=== PATIENT | male | born 1955 | race Caucasian/White ===

== ENCOUNTER → 2018-10-05 | Outpatient (CLI) | payer BC ==
--- NOTE | 2018-10-05 10:59 | Diagnostic Imaging Report ---
INDICATION: Left knee pain. FINDINGS: Three views of the left knee show no fracture, dislocation or other acute abnormalities. IMPRESSION: Negative left knee. Dictated by: Dictated on workstation # [id number]
--- NOTE | 2018-10-05 12:01 | Diagnostic Imaging Report ---
Bilateral shoulders INDICATION: Shoulder pain 3 views of both shoulder joints were obtained. There are no prior studies available for comparison. There is no fracture, dislocation or acute bony abnormality evident. There is mild degenerative disease of the glenohumeral joint and moderate degenerative disease of the acromioclavicular joints. The soft tissues are unremarkable. IMPRESSION: 1. There is no evidence for an acute bony abnormality of either shoulder joint. 2. If there is clinical concern regarding an injury to the rotator cuff or labrum, then MRI would be recommended for further evaluation. Dictated by: Dictated on workstation # [id number]
== END ==
LOC: RAD FS 10:40
PROVIDERS: ATTEND Family Medicine
DX: M25.511 Pain in right shoulder (principal); M25.512 Pain in left shoulder; M25.562 Pain in left knee
CPT/HCPCS: 73562

== ENCOUNTER → 2019-01-10 | Outpatient (CLI) | payer BC ==
--- NOTE | 2019-01-10 13:30 | Diagnostic Imaging Report ---
PROCEDURE: MRI right joint upper extremity without contrast. TECHNIQUE: Multiplanar, multisequence non contrast-enhanced MRI of the right upper extremity was accomplished. INDICATION: Right shoulder pain for 6 months. No known injury. COMPARISON: Radiographs from 10/05/2018 FINDINGS: No acute fracture or dislocation is seen in the right shoulder. There is superior migration of the humeral head, which contacts the undersurface of the acromion. There is remodeling and subcortical cystlike changes in the acromion due to the pseudoarticulation. There are moderate degenerative changes in the acromioclavicular joint. There is a small right shoulder joint effusion. There is fluid in the subacromial subdeltoid bursa. There is a complete tear of the supraspinatus tendon with retraction medially to the level of the glenohumeral joint. There is a full-thickness tear of the infraspinatus tendon. The rotator cuff tear is approximately 3.5 cm in width. There is mild atrophy and edema within the respective musculature. The subscapularis tendon demonstrates tendinosis with no high-grade partial-thickness or full-thickness tear. The teres minor tendon appears intact. The long head of the biceps tendon appears normal in course and signal. The glenoid labrum is suboptimally evaluated in the absence of intra-articular contrast. No para-labral cysts are seen. The acromion has a curved undersurface. The coracoclavicular and coracoacromial ligaments are intact. The soft tissues about the right shoulder are otherwise unremarkable. IMPRESSION: 1. Large full-thickness tear of the right rotator cuff involving the supraspinatus and infraspinatus tendons. There is mild atrophy and edema of the associated musculature. 2. 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 Moderate degenerative changes of the acromioclavicular joint. 3. Small right shoulder joint effusion. Dictated by: Dictated on workstation # [id number]
== END ==
LOC: RAD 12:05
PROVIDERS: ATTEND Nurse Practitioner
DX: M75.101 Unspecified rotator cuff tear or rupture of right shoulder, not specified as traumatic (principal); M19.011 Primary osteoarthritis, right shoulder
CPT/HCPCS: 73221

== ENCOUNTER 2019-09-08 06:44 | Emergency (ER) | payer BC ==
[~2019-09-08] VITALS: Ht 172 cm; Wt 82.0 kg
[2019-09-08] MEDS ORDERED: MECL-149 PO (07:14)
--- NOTE | 2019-09-08 07:14 | ED General ---
General Chief Complaint: Dizziness/Syncope Stated Complaint: DIZZY AND VOMITING Source of Information: Patient Exam Limitations: No Limitations History of Present Illness Date Seen by Provider: September 08, 2019 Time Seen by Provider: 06:57 Initial Comments Patient awoke this morning with onset of dizziness when moving his head. Worse when standing or changing positions. Not lightheaded, feeling as if he is off balance and spinning. Associated nausea with vomiting 1. Denies a history of vertigo. Denies any numbness, weakness, difficulty with speech. Denies recent illness, sinus congestion, ear pain, seasonal allergies or recent fever. Allergies and Home Medications Allergies Coded Allergies: No Known Allergies (Verified Allergy, Unknown, 09/08/19) Home Medications Meclizine HCl 25 Mg Tablet, 25 MG PO Q8H Prescribed by: KATE BUI on 09/08/19 0714 Patient Home Medication List Home Medication List Reviewed: Yes Review of Systems Review of Systems Constitutional: see HPI; No chills, No diaphoresis; dizziness; No fever; malaise; No weakness EENTM: no symptoms reported Respiratory: No cough, No short of breath Cardiovascular: No chest pain, No edema, No palpitations, No syncope Gastrointestinal: No abdominal pain, No loss of appetite; nausea, vomiting Musculoskeletal: No back pain, No neck pain Psychiatric/Neurological: See HPI; Denies Headache, Denies Numbness, Denies Paresthesia, Denies Seizure, Denies Tingling, Denies Tremors, Denies Weakness Past Lkjooll-Efkpdz-Xkhlpc Hx Past Med/Social Hx: Reviewed Nursing Past Med/Soc Hx Patient Social History Recent Foreign Travel: No Contact w/Someone Who Travel: No Physical Exam Vital Signs Vital Signs - First Documented 09/08/19 07:05 Temp 36.7 Pulse 58 Resp 18 B/P (MAP) 140/78 (98) Pulse Ox 98 O2 Delivery Room Air Capillary Refill : Height, Weight, BMI Height: '" Weight: lbs. oz. kg; BMI Method: General Appearance: No Apparent Distress, WD/WN Eyes: Bilateral Eye Normal Inspection, Bilateral Eye PERRL, Bilateral Eye EOMI HEENT: PERRL/EOMI, Normal ENT Inspection Neck: Full Range of Motion, Normal Inspection, Non Tender, Supple Respiratory: Chest Non Tender, Lungs Clear Cardiovascular: Regular Rate, Rhythm, No Edema Gastrointestinal: Normal Bowel Sounds, Soft; No Distended, No Guarding Extremity: Normal Capillary Refill, Normal Inspection Neurologic/Psychiatric: Alert, Oriented x3, No Motor/Sensory Deficits, Normal Mood/Affect, datastage developer II-XII Norm as Tested; No Abnormal Cerebellar Tests, No Abnormal Gait, No Aphasia, No Facial Droop, No Motor Weakness, No Sensory Deficit Skin: Normal Color, Warm/Dry Progress/Results/Core Measures Suspected Sepsis SIRS Temperature: Pulse: Respiratory Rate: Blood Pressure / Mean: Results/Orders My Orders Orders - KATE BUI DO Meclizine Tablet (Antivert Tablet) (09/08/19 07:15) Medications Given in ED Current Medications Medications Dose Ordered Sig/Brittany Route Start Time Stop Time Status Last Admin Dose Admin Meclizine HCl 25 mg ONCE ONCE PO 09/08/19 07:15 09/08/19 07:16 DC 09/08/19 07:12 25 MG Vital Signs/I&O 09/08/19 07:05 Temp 36.7 Pulse 58 Resp 18 B/P (MAP) 140/78 (98) Pulse Ox 98 O2 Delivery Room Air Capillary Refill : Progress Note : Progress Note feeling better after meclizine. Able to stand without significant vertigo sx. No nausea. Discussed prn meclizine and f/u w pCP if not improving, ER sooner if worse and unable to see PCP Departure Impression Primary Impression: Vertigo Disposition: 01 HOME, SELF-CARE Condition: Improved Departure-Patient Inst. Referrals: SELFJAVIER MD (PCP/Family) Primary Care Physician Patient Instructions: Vertigo (a Type of Dizziness) (DC) Scripts Meclizine HCl (Meclizine HCl) 25 Mg Tablet 25 MG PO Q8H for Dizziness, #20 TAB Prov: KATE BUI DO 09/08/19 KATE BUI DO September 08, 2019 07:14
[2019-09-08] MEDS ORDERED: MECLIZINE 25 MG (ANTIVERT) TAB PO ONE (07:15)
[2019-09-08 07:53] VITALS: BP 136/55
--- OUTSIDE RECORDS SUMMARY | 2019-09-08 08:11 | XMS REPORT | Continuity of Care Document ---
Demographics x Preferred Language Unknown Marital Status Unknown Congregation Affiliation Unknown Race Unknown Ethnic Group Unknown Author Organization Unknown Address Unknown Phone Unavailable Allergies There is no data. Medications There is no data. Problems Date Dx Coded Attending Type Code Diagnosis Diagnosed By 10/09/2018 SELF JAVIER SORENSON Ot M25.51 1 PAIN IN RIGHT SHOULDER 10/09/2018 SELF JAVIER SORENSON Ot M25.51 2 PAIN IN LEFT SHOULDER 10/09/2018 SELF JAVIER SORENSON Ot M25.56 2 PAIN IN LEFT KNEE 10/21/2018 SELF JAVIER SORENSON Ot M25.51 1 PAIN IN RIGHT SHOULDER 10/21/2018 SELF JAVIER SORENSON Ot M25.51 2 PAIN IN LEFT SHOULDER 10/21/2018 SELF JAVIER SORENSON Ot M25.56 2 PAIN IN LEFT KNEE 11/04/2018 SELF JAVIER SORENSON Ot M25.51 1 PAIN IN RIGHT SHOULDER 11/04/2018 SELF JAVIER SORENSON Ot M25.51 2 PAIN IN LEFT SHOULDER 11/04/2018 SELF JAVIER SORENSON Ot M25.56 2 PAIN IN LEFT KNEE 01/26/2019 JA PRINCE Ot M19.011 PRIMARY OSTEOARTHRITIS, RIGHT SHOULDER 01/26/2019 JA PRINCE Ot M75.101 UNSP ROTATR-CUFF TEAR/RUPTR OF RIGHT JANEY Procedures There is no data. Results There is no data. Encounters ACCT No. Visit Date/Time Discharge Status Pt. Type Provider Facility Loc./Unit Complaint [id number] 10/05/2018 10:15:00 10/05/2018 23:59: 59 CLS Outpatient [facility] [id number] 01/10/2019 12:05:00 019 23:59:59 CLS Outpatient JA PRINCE [facility] RAD ROTATOR CUFF TEAR, RIGGera T [id number] 10/05/2018 10:40:00 019 23:59:59 CLS Outpatient SELF JAVIER SORENSON [facility] RAD FS M25.511 M25.562
== END 2019-09-08 07:45 | disposition home or self-care (01) ==
LOC: EDUNIT# 06:44 → ER FS 06:46
DX: R42 Dizziness and giddiness (principal)
CPT/HCPCS: 99283

== ENCOUNTER → 2020-10-23 | Outpatient (CLI) | payer BC ==
[~2020-10-23] MED LIST: MECL-149 PO
== END ==
LOC: CARD 15:00
PROVIDERS: ATTEND Family Medicine
DX: I08.0 Rheumatic disorders of both mitral and aortic valves (principal)
CPT/HCPCS: 93306

== ENCOUNTER → 2021-02-17 | Outpatient (CLI) | payer BC | LOC: LAB FS 10:00 | PROVIDERS: ATTEND Thoracic Surgery (Cardiothoracic Vascular Surgery) | DX: Z01.812 Encounter for preprocedural laboratory examination (principal); Z20.822 Contact with and (suspected) exposure to COVID-19 | CPT/HCPCS: 87635 ==

== ENCOUNTER 2021-11-26 06:16 | Outpatient (CLI) | payer BC ==
[~2021-11-26] VITALS: Ht 172.7 cm; Wt 83.9 kg
[2021-11-26] MEDS ORDERED: MELO10CA3 PO (10:28)
== END 2021-11-26 10:32 | disposition home or self-care (01) ==
LOC: PREOP 06:16
PROVIDERS: ATTEND Surgery
DX: Z01.818 Encounter for other preprocedural examination (principal)

== ENCOUNTER 2021-12-08 08:37 | Day surgery (SDC) | payer BC ==
[~2021-12-08] VITALS: Ht 172.7 cm; Wt 83.9 kg
[~2021-12-08 08:37] MED LIST changes: +MELO10CA3 PO
[2021-12-08] MEDS ORDERED: LACTATED RINGERS 1,000 ML IV STA (08:46)
[2021-12-08 08:55] VITALS: BP 137/83
[2021-12-08] MEDS ORDERED: LACTATED RINGERS 1,000 ML IV ONE (08:55)
[2021-12-08] MEDS ORDERED: ceFAZolin 2 GM IV Premixed 50 ML IV ONE (09:00)
--- NOTE | 2021-12-08 09:02 | Progress Note-Pre Operative ---
Pre-Operative Progress Note Date of Available H&P: Nov 18, 2021 Date H&P Reviewed: Dec 08, 2021 Time H&P Reviewed: 09:00 History & Physical: H&P Reviewed, Patient Examed, No changes noted Pre-Operative Diagnosis: Blood in stools SHAE RIVAS DO Dec 08, 2021 09:02
[2021-12-08] MEDS ORDERED: PROPOFOL INJECTION 50 ML IV ONE (09:30)
[2021-12-08 10:00] VITALS: BP 100/57
--- NOTE | 2021-12-08 10:02 | Progress Note-Post Operative ---
Post-Operative Progess Note Surgeon (s)/Mortgage Originator (s) Surgeon SHAE RIVAS DO Mortgage Originator: JOANA Sellers Pre-Operative Diagnosis Blood in stools Post-Operative Diagnosis Inflammation Colonic ulcers Diverticula int hemorrhoids Procedure & Operative Findings Date of Procedure 12/08/21 Procedure Performed/Findings Colonoscopy with hot bx PROCEDURE NOTE: After informed consent was obtained, the patient was brought to the endoscopy suite, placed in bed in left lateral decubitus position. He was administered IV sedation by the TRANSPLANT REGISTERED NURSE who then monitored his vitals the entire time, heart rate, blood pressure and pulse ox and the scope was inserted. Immediately upon entering noted inflammation in the sigmoid colon and some diverticula; pictures were take. Pushed past this and all the way to about 150 cm and into the cecum. Took a picture of appendiceal orifice and noted the ileocecal valve. He also had what looked like small ulcers here and I did a cold biopsy of the. Then slowly withdrew the scope insufflating to look circumferentially at the wheat starting in the cecum, up the ascending colon to the hepatic flexure, then down the transverse colon to the splenic flexure and into the descending colon. I found some more significant inflammation here and did a hot biopsy and then two hot biopsies in the sigmoid colon. Down in the sigmoid and then into the rectal vault and retroflexed the scope. Took picture of the internal hemorrhoids. The patient tolerated the procedure. He was recovered in endoscopy suite. Recommended for repeat colonoscopy in a year if he continues to bleed and depending on pathology from biopsy. Anesthesia Type IV sedation by TRANSPLANT REGISTERED NURSE Estimated Blood Loss Estimated blood loss (mL): scant Specimens/Packing Specimens Removed cecal bx desc colon bx sigmoid colon bx SHAE RIVAS DO Dec 08, 2021 10:02
--- NOTE | 2021-12-08 10:04 | Endoscopy Discharge Instruct ---
Endo Procedure/Findings Findings 1.: Other Findings (Inflammation and ulcers) 2.: Diverticulosis 3.: Internal Hemorrhoids Discharge Instructions - Activity: You might feel a little sleepy until tomorrow. This is due to the medicine you received to relax you. Until tomorrow, you should: NOT drive a car, operate machinery or power tools. NOT drink any alcoholic beverages. NOT make any important decisions or sign importortant papers. Do not return to work until tomorrow, unless otherwise instructed. Resume previous activities tomorrow. Diet: Start by taking liquids. If you tolerate liquids, advance to solid food. 1.: Colonoscopy in 1 year Notify Physician - If you experience excessive bleeding, unusual abdominal pain, fever, or chest pain, contact your doctor immediately. SHAE RIVAS DO Dec 08, 2021 10:04
[2021-12-08 10:05] VITALS: BP 102/52
[2021-12-08 10:10] VITALS: BP 100/59
[2021-12-08 10:40] VITALS: BP 137/73
--- NOTE | 2021-12-08 11:16 | Anesthesia-General Post-Op ---
MAC Patient Condition Mental Status/LOC: Same as Preop Cardiovascular: Satisfactory Nausea/Vomiting: Absent Respiratory: Satisfactory Pain: Controlled Complications: Absent Post Op Complications Complications None Follow Up Care/Instructions Patient Instructions None needed. Anesthesiology Discharge Order Discharge Order Patient is doing well, no complaints, stable vital signs, no apparent adverse anesthesia problems. No complications reported per nursing. SHELDON ARIAS CRNA Dec 08, 2021 11:16
== END 2021-12-08 10:50 | disposition home or self-care (01) ==
LOC: ENDO 08:37
PROVIDERS: ATTEND Surgery
DX: K52.9 Noninfective gastroenteritis and colitis, unspecified (principal); K63.3 Ulcer of intestine; K57.31 Diverticulosis of large intestine without perforation or abscess with bleeding; K64.8 Other hemorrhoids; Z79.82 Long term (current) use of aspirin